=== PATIENT | male | born 1955 ===

== ENCOUNTER 2023-11-13 06:30 | Day surgery (SDC) | payer MEDICARE, OTHER ==
[~2023-11-13 06:30] MED LIST: Lactated Ringers 1,000 ML IV SCH; Morphine 8 MG, EPINEPHrine 0.3 MG, Cefuroxime 750 MG, Ketorolac 30 MG, Sodium Chloride ... PRN; Propofol 200 MG/20 ML SDV ONE; Sodium Chloride 0.9% 10 ML Syringe FLUSH PRN; Sodium Chloride 0.9% 10 ML Syringe FLUSH SCH; ceFAZolin 2 GM Vial ONE; fentaNYL 100 MCG/2 ML SDV ONE
[2023-11-13] MEDS ORDERED: Ketorolac 30 MG/ML SDV ONE (06:32)
[2023-11-13] MEDS ORDERED: dexmedeTOMIDine HCl 200 MCG/2 ML SDV ONE (06:32)
[2023-11-13] MEDS ORDERED: Dexamethasone 4 MG/ML 5 ML MDV ONE (06:32)
[2023-11-13] MEDS ORDERED: Ondansetron 4 MG/2 ML SDV ONE (06:32)
[2023-11-13] MEDS ORDERED: EPINEPHrine 1 MG/ML SDV ONE (06:34)
[2023-11-13] MEDS ORDERED: Ropivacaine 0.5% 5 MG/ML 30 ML SDV ONE (06:34)
[2023-11-13] MEDS: Lactated Ringers 1,000 ML IV SCH (07:00)
[2023-11-13] MEDS: Acetaminophen 325 MG Tab PO SCH (07:11)
[2023-11-13] MEDS: oxyCODONE ER 10 MG TAB.ER PO SCH (07:11)
[2023-11-13] MEDS: Pregabalin 25 MG Cap PO SCH (07:12)
[2023-11-13] MEDS ORDERED: ceFAZolin 1 GM Vial ONE (07:29)
[2023-11-13] MEDS ORDERED: Midazolam 1 MG/ML 2 ML SDV ONE ×2 (08:15→09:06)
[2023-11-13] MEDS ORDERED: Lactated Ringers 1,000 ML ONE (08:48)
[2023-11-13] MEDS: Tranexamic Acid 1,000 MG/10 ML Vial ONE (08:57)
[2023-11-13] MEDS: Vancomycin 1 GM SDV ONE (08:58)
[2023-11-13] MEDS: Morphine 8 MG, EPINEPHrine 0.3 MG, Cefuroxime 750 MG, Ketorolac 30 MG, Sodium Chloride ... PRN (08:59)
[2023-11-13] MEDS: oxyCODONE 5 MG Tab PO SCH (13:21)
[2023-11-13] MEDS: Ondansetron 4 MG Tab.DIS PO SCH (15:27)
[2023-11-13 15:57] VITALS: BP 121/70; PULSE 70
[2023-11-14] MEDS ORDERED: oxyCODONE ER 10 MG TAB.ER PO ONE (06:00)
[2023-11-14] MEDS ORDERED: Pregabalin 25 MG Cap PO ONE (06:00)
[2023-11-14] MEDS ORDERED: Acetaminophen 325 MG Tab PO ONE (06:00)
== END 2023-11-13 15:46 | disposition home or self-care (01) ==
LOC: JD.SDS 06:30
PROVIDERS: ATTEND Orthopaedic Surgery
DX: M17.12 Unilateral primary osteoarthritis, left knee (principal); I10 Essential (primary) hypertension; E78.00 Pure hypercholesterolemia, unspecified; I25.2 Old myocardial infarction; Z95.5 Presence of coronary angioplasty implant and graft; Z79.82 Long term (current) use of aspirin; Z79.899 Other long term (current) drug therapy
CPT/HCPCS: 0055T; 27447; 73560; 97116; 97161; A9270; C1713; C1776; J0171; J0690; J0697; J1100; J1885; J2250; J2270; J2405; J2704; J2795; J3010; J3370; J7120; 01402; 64447; J3490